=== PATIENT | female | born 1995 | race Caucasian/White ===

== ENCOUNTER 2016-12-28 20:06 | Emergency (ER) | payer OTHER ==
[2016-12-28] MEDS ORDERED: DEXAMETHASONE SOD PHOS INJ 10 MG/1 ML VIAL IV ONE (23:08)
--- NOTE | 2016-12-28 23:10 | ER Document Report ---
HPI - HPI Patient complains to provider of: Neck pain, right side Pain Level: 4 Context: Patient is a 21-year-old female that comes emergency department for chief complaint of about a week of a tender area in her right neck, she notices this when she swallows, occasionally she will feel the pain radiated up towards her right ear. She denies injury, fever, sore throat, ear pain, ear drainage, nausea, vomiting. She denies any daily medications or medical problems. LMP within the past month. - EENT EENT: REPORTS: Sore Throat - CARDIOVASCULAR Cardiovascular: DENIES: Chest pain - MUSCULOSKELETAL Musculoskeletal: DENIES: Extremity pain, Back Pain, Neck Pain, Swelling - DERM Skin Color: Normal Skin Problems: None - NURSING COMMENTS Comment: Pt c/o stabbing pain in right side of throat and ear pain x 10 days. Past Medical History - General Information source: Patient - Social History Smoking Status: Never Smoker Frequency of alcohol use: None Drug Abuse: None Lives with: Family Family History: Reviewed & Not Pertinent Patient has suicidal ideation: No Patient has homicidal ideation: No - Medical History Medical History: Negative Renal/ Medical History: Denies: Hx Peritoneal Dialysis Surgical Hx: Negative - Immunizations Immunizations up to date: Yes Hx Diphtheria, Pertussis, Tetanus Vaccination: Yes Vertical Provider Document - CONSTITUTIONAL General Appearance: WD/WN, No Apparent Distress - INFECTION CONTROL TRAVEL OUTSIDE OF THE [place] IN LAST 30 DAYS: No - HEENT HEENT: Atraumatic, Normal ENT Exam, Normocephalic. negative: Conjuctival Injection, Dental Injury, PERRLA, Pharyngeal Exudate, Pharyngeal Tenderness, Pharyngeal Erythema, Tympanic Membrane Red, Tympanic Membrane Bulging - NECK Neck: Lymphadenopathy-Right - There is some noted tender lymphadenopathy along the right side, otherwise normal neck exam - RESPIRATORY Respiratory: Breath Sounds Normal, No Respiratory Distress O2 Sat by Pulse Oximetry: 100 - CARDIOVASCULAR Cardiovascular: Regular Rate, Regular Rhythm - GI/ABDOMEN Gastrointestinal: Abdomen Soft, Abdomen Non-Tender - MUSCULOSKELETAL/EXTREMETIES Musculoskeletal/Extremeties: MAEW, FROM, Non-Tender - NEURO Level of Consciousness: Awake, Alert, Appropriate - DERM Integumentary: Warm, Dry, No Rash Course - Re-evaluation Re-evalutation: Unremarkable ENT exam with the exception of anterior cervical adenopathy on the right side, no evidence of current infection, no concerns of abscess or other abnormalities noted. Treated with Decadron, discussed follow-up and return precautions, patient states understanding and agreement. - Vital Signs Vital signs: Temp Pulse Resp BP Pulse Ox 98.1 F 88 18 135/85 H 100 12/28/16 20:49 12/28/16 20:49 12/28/16 20:49 12/28/16 20:49 12/28/16 20:49 Discharge - Discharge Clinical Impression: Neck pain Condition: Stable Disposition: HOME, SELF-CARE Additional Instructions: By examination there is a swollen tender lymph node, this should resolve with time, remaining examination shows no concerning abnormalities. Follow-up with primary care. Return to emergency department for any concerning or worsening symptoms including difficulty breathing, difficulty swallowing, spiking fever, or any other concerning symptoms.
[2016-12-28 23:25] VITALS: BP 132/82
== END 2016-12-28 23:16 | disposition home or self-care (01) ==
LOC: ER 20:06
DX: M54.2 Cervicalgia (principal)
CPT/HCPCS: 99282; 96374; J1100